=== PATIENT | male | born 1995 | race Two or more races ===

== ENCOUNTER 2020-12-11 09:25 | Emergency (ER) | payer SELFPAY ==
[~2020-12-11] VITALS: Ht 160 cm; Wt 60.0 kg
[2020-12-11 09:45] VITALS: BP 121/79
--- NOTE | 2020-12-11 11:26 | PHYS DOC ---
Past Medical History Past Surgical History: Other Additional Past Surgical Histo: Hernia repair Smoking Status: Never Smoker Alcohol Use: None General Adult EDM: Chief Complaint: SORE THROAT HPI: HPI: Patient is a 25 year old female who presents to the ED today complaining of a sore throat that began a week ago. Patient states she was seen at [facility] and had a negative strep test as well as a negative Covid test. Denies any other symptoms. Denies any difficulty swallowing. Review of Systems: Review of Systems: Constitutional: Denies fever or chills. [] Eyes: Denies change in visual acuity. [] HENT: Reports sore throat. Denies nasal congestion Respiratory: Denies cough or shortness of breath. [] Cardiovascular: Denies chest pain or edema. [] GI: Denies abdominal pain, nausea, vomiting, bloody stools or diarrhea. [] : Denies dysuria. [] Musculoskeletal: Denies back pain or joint pain. [] Integument: Denies rash. [] Neurologic: Denies headache, focal weakness or sensory changes. [] Psychiatric: Denies depression or anxiety. [] Heart Score: C/O Chest Pain: N/A Risk Factors: Risk Factors: DM, Current or recent (<one month) smoker, HTN, HLP, family history of CAD, obesity. Risk Scores: Score 0 - 3: 2.5% MACE over next 6 weeks - Discharge Home Score 4 - 6: 20.3% MACE over next 6 weeks - Admit for Clinical Observation Score 7 - 10: 72.7% MACE over next 6 weeks - Early Invasive Strategies Allergies: Allergies: Allergies Coded Allergies Type Severity Reaction Last Updated Verified No Known Drug Allergies 12/11/20 No Physical Exam: PE: Constitutional: Well developed, well nourished, no acute distress, non-toxic appearance. [] HENT: Normocephalic, atraumatic, bilateral external ears normal, oropharynx moist, no oral exudates, nose normal. [] Airway is open. Slight erythema to posterior pharynx Eyes: PERRLA, EOMI, conjunctiva normal, no discharge. [] Neck: Normal range of motion, no tenderness, supple, no stridor. [] Cardiovascular:Heart rate regular rhythm, no murmur [] Lungs & Thorax: Bilateral breath sounds clear to auscultation [] Abdomen: Bowel sounds normal, soft, no tenderness, no masses, no pulsatile masses. [] Skin: Warm, dry, no erythema, no rash. [] Back: No tenderness, no CVA tenderness. [] Extremities: No tenderness, no cyanosis, no clubbing, ROM intact, no edema. [] Neurologic: Alert and oriented X 3, normal motor function, normal sensory function, no focal deficits noted. [] Psychologic: Affect normal, judgement normal, mood normal. [] Current Patient Data: Vital Signs: Vital Signs Date Time Temp Pulse Resp B/P (MAP) Pulse Ox O2 Delivery O2 Flow Rate FiO2 12/11/20 09:45 98.5 79 18 121/79 99 Room Air 98.5 EKG: EKG: [] Radiology/Procedures: Radiology/Procedures: [] Course & Med Decision Making: Course & Med Decision Making Pertinent Labs and Imaging studies reviewed. (See chart for details) This is a 25-year-old male patient presenting to the ED today with a sore throat that began a week ago. Patient has no other symptoms. Negative rapid strep, Covid swabs pending. The discharge to home. Provided return precautions and instructed to quarantine himself until he gets results from us Dragon Disclaimer: Dragon Disclaimer: This electronic medical record was generated, in whole or in part, using a voice recognition dictation system. Departure Departure Impression: Primary Impression: Person under investigation for COVID-19 Additional Impression: Acute viral pharyngitis Disposition: HOME / SELF CARE / HOMELESS Condition: STABLE Referrals: NO PCP (PCP) MELIA PINEDA MD follow up in 1-2 weeks Patient Instructions: Viral Pharyngitis Additional Instructions: You were seen for a sore throat. Your rapid strep test is negative. Use salt water gargles as needed for sore throat. You can take Tylenol or Motrin for the pain. You were tested for COVID-19, we will call you when results are back. Quarantine yourself until you hear from us. LYNN MARKHAM APRN Dec 11, 2020 11:26
--- NOTE | 2020-12-13 10:34 | NUR ---
IP: Informed pt of negative covid test. Pt verbalized understanding.
== END 2020-12-11 11:35 | disposition home or self-care (01) ==
LOC: ER 09:25
DX: J02.8 Acute pharyngitis due to other specified organisms (principal); Z20.822 Contact with and (suspected) exposure to COVID-19
CPT/HCPCS: 87070; 87426; 87880; 99283; U0003; U0005